=== PATIENT | male | born 1995 | race Two or more races ===

== ENCOUNTER 2018-09-30 19:45 | Emergency (ER) | payer SELFPAY ==
[~2018-09-30] VITALS: Ht 182.9 cm; Wt 106.6 kg
--- NOTE | 2018-09-30 20:20 | NUR ---
PT BIBSELF FROM HOME COMPLAINING OF GENERALIZED ITCHY RASH. PT DENIES SOB, CHEST PAIN. NOTED REDNESS AND FACIAL SWELLING. PT AAOX4. RESPIRATIONS EVEN AND UNLABORED. SKIN INTACT. NO ACUTE DISTRESS NOTED.
[2018-09-30] MEDS ORDERED: diphenhydrAMINE HCL 25 MG CAPSULE ONE (20:51)
[2018-09-30] MEDS ORDERED: FAMOTIDINE (20 MG) 20 MG TABLET ONE (20:52)
[2018-09-30] MEDS ORDERED: predniSONE 20 MG TABLET ONE (20:52)
[2018-09-30] MEDS: diphenhydrAMINE HCL 50 MG CAPSULE PO ONE ×2 (20:55→21:53)
[2018-09-30] MEDS: predniSONE 10 MG TABLET PO ONE ×2 (20:56→21:53)
[2018-09-30] MEDS: FAMOTIDINE (20 MG) 20 MG TABLET PO ONE ×2 (20:56→21:53)
--- NOTE | 2018-09-30 21:13 | NUR ---
BINDERY TECHNICIAN AT BEDSIDE FOR BLOOD DRAW
[2018-09-30 21:17] LABS: BASOPHILS % (AUTO) 0.1 % (0.0-2.0); EOSINOPHILS % (AUTO) 0.3 % (0.0-6.0); HEMATOCRIT 45 % (39-51); HEMOGLOBIN 15.5 g/dL (13.5-17.5); LYMPHOCYTES # (AUTO) 1.7 /CMM (0.8-4.8); LYMPHOCYTES % (AUTO) 21.9 % (20.0-44.0); MEAN CORPUSCULAR HGB CONC 34 g/dl (31.0-36.0); MEAN CORPUSCULAR VOLUME 88 fL (80-96); MONOCYTES # (AUTO) 0.3 /CMM (0.1-1.30); MONOCYTES % (AUTO) 4.4 % (2.0-12.0); NEUTROPHILS # (AUTO) 5.6 /CMM (1.8-8.9); NEUTROPHILS % (AUTO) 73.3 % (43.0-81.0); PLATELET COUNT (AUTO) 195 /CMM (150-450); RED BLOOD CELL COUNT(AUTO) 5.13 MIL/uL (4.5-6.0); WHITE BLOOD COUNT (AUTO) 7.6 K/uL (4.3-11.0)
[2018-09-30] MEDS ORDERED: IV NS 0.9% 1,000 ML BAG IV ONE (21:30)
[2018-09-30 21:33] LABS: CALCIUM, SERUM 8.1 mg/dL (8.5-10.1); CREATININE 1.1 mg/dL (0.6-1.3); POTASSIUM 3.7 mmol/L (3.5-5.1)
[2018-09-30 21:39] LABS: ALBUMIN 3.4 g/dL (3.4-5.0); BILIRUBIN,DIRECT 0.2 mg/dL (0.0-0.2); BILIRUBIN,TOTAL 0.9 mg/dL (0.2-1.0); TOTAL PROTEIN, SERUM 6.5 g/dL (6.4-8.2)
[2018-09-30 22:28] VITALS: BP 127/86
--- NOTE | 2018-09-30 22:28 | NUR ---
Patient discharged to home in stable condition. Written and verbal after care instructions given. Patient verbalizes understanding of instruction. IV removed. Catheter intact and site benign. Pressure and 4x4 applied to site. No bleeding noted. Pt ambulatory with a steady gait
== END 2018-09-30 22:29 | disposition home or self-care (01) ==
LOC: ER 19:46
DX: T78.1XXA Other adverse food reactions, not elsewhere classified, initial encounter (principal); X58.XXXA Exposure to other specified factors, initial encounter
CPT/HCPCS: 36415; 80048-TC; 80076-TC; 83690-TC; 85025-TC; J7030; Q0163